=== PATIENT | male | born 2000 | race Caucasian/White ===

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

== ENCOUNTER 2023-04-27 20:01 | Emergency (ER) | payer OTHER, SELFPAY ==
[2023-04-27 20:15] VITALS: BP 137/72; BP 146/84; PULSE 112; PULSE 140; RESP 16; TEMP 37.2; O2SAT 96; O2SAT 97; BMI 25.8
--- NOTE | 2023-04-27 20:21 | PC.NURSE ---
patient denies SI/HI, states he has just been upset the past few days
[2023-04-27 20:34] VITALS: BP 137/76; PULSE 123; RESP 14; TEMP 36.8; O2SAT 95
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
== END 2023-04-27 20:47 | disposition home or self-care (01) ==
PROVIDERS: Emergency Provider Internal Medicine
DX: R45.1 Restlessness and agitation (principal); F12.90 Cannabis use, unspecified, uncomplicated
CPT/HCPCS: 99282; 99283

== ENCOUNTER → 2023-06-28 12:30 | Outpatient (BNV) | payer OTHER, SELFPAY | PROVIDERS: Visit Provider Psychiatry & Neurology Psychiatry | DX: F11.20 Opioid dependence, uncomplicated (principal); F13.120 Sedative, hypnotic or anxiolytic abuse with intoxication, uncomplicated; F19.10 Other psychoactive substance abuse, uncomplicated; F41.3 Other mixed anxiety disorders; F19.94 Other psychoactive substance use, unspecified with psychoactive substance-induced mood disorder; F17.200 Nicotine dependence, unspecified, uncomplicated | CPT/HCPCS: 90792 ==

== ENCOUNTER 2023-07-02 11:45 | Outpatient (RCR) | payer OTHER, SELFPAY ==
--- NOTE | 2023-06-27 09:29 | PC.NURSE ---
Eris did not show up to the program this morning. I called Eris's phone and his mother answered. She told me he is at home and asked me to call her back in 20 minutes.
--- NOTE | 2023-06-27 09:56 | PC.NURSE ---
I spoke to Eris who stated he let staff know yesterday that he has a appointment at 11:am today for a therapist in [place] and he was not able to rescheduled this appointment to attend the program. He plans on coming tomorrow.
[2023-06-28 11:38] VITALS: BMI 32.0
[2023-06-28 15:18] LABS: Amphetamine Screen Urine Not Detected (Not Detect); Barbiturates, Urine Not Detected (Not Detect); Benzodiazepines Screen Urine Not Detected (Not Detect); Cannabinoid Screen Urine POSITIVE (Not Detect); Cocaine Screen Urine Not Detected (Not Detect); Fentanyl, urine Not Detected (Not Detect); Opiate Screen Urine Not Detected (Not Detect); Phencyclidine Screen Urine Not Detected (Not Detect)
--- NOTE | 2023-06-28 23:55 | HO.PS.ADMBH ---
HPI Date of Service: 06/28/23 Chief Complaint: anxiety,DINAH Sources of Information: patient interviewed, chart reviewed and crisis/core team assessment reviewed HPI Narrative: Patient prefers going by Isaiah . This is the first [facility] admission for this?22 year old male with a history of polysubstance dependence on opioid agonist therapy who recently completed 60-day court-mandated substance abuse treatment for alcohol dependence. Just prior to this he had completed 30 days of treatment at the same facility, only to relapse immediately after being discharged.? Today he reports he is doing well, ?I?m not going back this time?. He says he is committed to his sobriety and is feeling more steady and more confident this time around. ?I needed the extra time?. He reports his mood is ?good, now stable? and says he is not having any mood swings anymore. He reports that he does not struggle with mood issues when he is clean. He indicates that relapses are triggered by situations, namely arguments with family or loved ones. He reports some anxiety, somatic more so than cognitive, but again says anxiety is only problematic in the context of substance and alcohol use. He otherwise denies any history suggestive of depressive episodes or suicidal or self harming behaviors, and reports he has ?never? had any suicidal ideation. He denies any anxiety spectrum disorders or trauma history. He denies any history of hypomania, ortiz or psychosis.? He was started on Vivitrol just over a week ago to help deal with cravings and says in the meantime he has been dealing with cravings by keeping himself distracted with activities (working, going to the gym, visiting family, hanging out with his younger sister, going shopping, going for drives) and generally staying focused on his recovery.? He recently started to transition away from a problematic long-term relationship with his GF of 6 yrs, which he has been dealing with but says this is a ?good change? and that he was the one who initiated the break-up, and says that this was a healthy choice, ?I?m doing it for me?. He will be moving back home to live with his mother and reports that he and his mother have a strong relationship.? Past Psychiatric History: No hx of IP hospitalizations or PHP admissions Section 35s (x 2) for opioid and benzodiazepine addiction, mandated treatment to [facility] in [place] 02/2023 (for 30 days) and 04/2023 (for 60 days) Denies any history of suicide attempts, gestures or self harming behaviors Hx of ADHD diagnosed in childhood, was treated from ages [age] but felt ?zombified? and his mother allowed him to stop taking his medication. He recognizes he still deals with symptoms of ADHD on a daily basis but does not feel it is overly impairing and does not feel he needs treatment.? Current treaters: Therapist through [facility] PCP - Annia Vigil - patient says he has not been seen in a few years Previous trials: Concerta in childhood naltrexone po (since 1 month ago); and transitioned onto IM naltrexone (first dose 06/19/23) CURRENT MEDICATIONS: Vivitrol 380 mg IM monthly (through [facility]) [facility] Medical History (Updated 07/01/23 @ 04:11 by Evi Garrido MD) No known health problems Narrative: Healthy Denies any chronic conditions or hx of serious illnesses Denies any surgeries Denies any seizures Denies any concussions or TBI Ht: 5?6? Wt: 198 lbs ALL: NKDA Narrative: Denies Family History: Father w active addiction No other known FH, denies known hx of suicides Social History: Living at home with his mother and 18 year old sister? Recent break-up of 6 year relationship Employed at [employer] 32 hrs/week? Dropped out of in 10th grade In process of working toward his GED through [facility] Grew up in the area, family moved many times between [place], [place], [place], [place] when he was growing up Current legal issues - drug possession charges which he reportedly is in the process of getting expunged from his records. Denies any other legal history. Substance History: Opioid use: since summer 2022, started abusing percocets (his drug of choice ), regularly to daily, last use 04/2023 BZD use: since Fall 2022, occasionally, last use 04/2023 Alcohol use: since age 18, occasional, last use Cocaine use: since 2022, has ever used on 2 occasions, last use 04/2023 Cannabis use: since age 18, occasional, not daily, currently avoiding, last use 05/06/2023 Caffeine use: minimal 0-1 unit/day Nicotine use: currently vaping, about 1 year Trauma History: Denies hx of physical, sexual or emotional abuse. Per assessment watched his father use drugs Diagnostics Vital Signs (24Hr): BMI result Body Mass Index 32.0 Labs Labs: Laboratory Results - last 48 hr 06/28/23 11:30 Urine Opiates Screen Not Detected Urine Fentanyl Screen Not Detected Ur Barbiturates Screen Not Detected Ur Phencyclidine Scrn Not Detected Ur Amphetamines Screen Not Detected U Benzodiazepines Scrn Not Detected Urine Cocaine Screen Not Detected U Marijuana (THC) Screen POSITIVE H Meds/Allergies Meds Home Medications Medication Instructions Recorded Confirmed Type naltrexone microspheres 380 mg 380 mg IM QMONTH 06/28/23 06/28/23 History intramuscular suspension,extended release (Vivitrol) Allergies Allergies Allergy/AdvReac Type Severity Reaction Status Date / Time No Known Allergies Allergy Verified 06/28/23 11:35 [No Known Allergies*] Mental Status Exam Mental Status Exam Narrative: Alert, oriented, in no acute distress. Calm, cooperative, engaged. No psychomotor agitation or neurovegetative retardation. Eye contact maintained. Mood okay , anxious, affect contstricted. Speech normal. Thought process linear, coherent. Thought content related to stressors, cravings, denies helplessness, hopelessness, or SI. Denies aggressive ideation or HI. No paranoia or delusional content elicited. No evidence of psychosis. Insight and judgment impaired. Assessment & Plan Assessment & Plan (1) Opioid use disorder, severe, on maintenance therapy: Status: Acute Code(s): F11.20 - Opioid dependence, uncomplicated Assessment and Plan: 2 months since last use (will be in early remission by July) (2) Sedative, hypnotic or anxiolytic abuse with intoxication, uncomplicated: Status: Acute Code(s): F13.120 - Sedative, hypnotic or anxiolytic abuse with intoxication, uncomplicated (3) Polysubstance abuse: Status: Acute Code(s): F19.10 - Other psychoactive substance abuse, uncomplicated Assessment and Plan: alcohol, cannabis, cocaine (minimal), nicotine dependence (4) Other mixed anxiety disorders: Status: Acute Code(s): F41.3 - Other mixed anxiety disorders (5) Substance induced mood disorder: Status: Acute Code(s): F19.94 - Other psychoactive substance use, unspecified with psychoactive substance-induced mood disorder Assessment and Plan: in remission (6) Nicotine dependence with current use: Status: Acute Code(s): F17.200 - Nicotine dependence, unspecified, uncomplicated Assessment and Plan: nicotine vaping daily since >1 year Plan Admit to [facility] patient being maintained on Vivitrol 380 mg monthly injectable no medications started at this time per patient preference [facility] reviewed - no findings lab slip given, pending urine tox screen continue to monitor as per protocol Patient educated on: diagnosis, medication risk/benefits and substance abuse Informed Consent: understands Reason for continued partial hosp. stay Substantial Risk for: rapid decompensation and med/psych decompensation Certification I certify that partial hospital treatment is medically necessary due to the symptoms and problems resulting from the patient's mental illness and the failure to treat the patient at the partial hospital level of care would likely result in the patient requiring inpatient psychiatric care which could not be prevented at a less intensive level of care. Time Spent With Patient Time: Total time managing care of this patient today __60__ minutes.
--- NOTE | 2023-07-01 09:30 | HO.PHP ---
[facility] staff member followed up with Eris due to him not showing to program. Eris informed [facility] staff member that he is not feeling well and will be going to the doctors later today to receive a note to bring to program tomorrow. [facility] staff member was receptive and assessed level of risk. Eris reported no concerns around SI, plan or intent and stated he is safe. Eris will be at program tomorrow.
--- NOTE | 2023-07-03 09:30 | HO.PHP ---
[facility] staff Admin, received a Voice message from Eris stating that he attended program 15 minutes late this morning, in which an individual informed him he was unable to partake for the day. [facility] staff member, Cristela, followed up with Eris in regards to his Voice message. Eris said that someone told him that he was unable to stay for the day because he missed the community meeting and noted that he recalls staff members stating what the guidelines were so he had gone home. [facility] staff member explored if he knew who he had spoken to. Eris disclosed that it was a lady with blonde hair and a blue shirt. [facility] staff was uncertain to who Eris was referring to and noted that there are other people who work in the hospital that walk in the hallways. Eris felt strongly around it was a staff member in the program and asked if he could come now. [facility] staff disclosed it is currently 9:40 AM and he wouldn't be able to participate since he missed a majority of the first group. [facility] staff explored if Eris is safe. Eris reported no SI,plan or intent and stated he will be in the program tomorrow. [facility] staff was receptive and reminded him of the protocols around attendance. Eris was receptive.
--- NOTE | 2023-07-04 09:30 | HO.PHP ---
[facility] staff member reached out to Eris due to him not arriving to program today. [facility] staff member left a voice message and encouraged Eris to return the programs call. [facility] staff member stated if we do not hear back from him in a 15 minute time period, we will have to move forward with completing a wellness check. [facility] staff member is awaiting a call back.
--- NOTE | 2023-07-04 09:45 | HO.PHP ---
[facility] staff member reached out to Eris one more time prior to initiating a wellness check with the local police. Eris's mother had answered the phone, in which she noted that Eris is safe and he was not in attendance to program today due to not feeling well. Eris's mother voiced that they aren't sure if he has COVID and stated that her mother is bringing another test over to see if the other ones were incorrect that he had taken. Eris's mother expressed that when Eris is out of the shower, she will have him contact the program back. [facility] staff member was receptive.
--- NOTE | 2023-07-04 10:30 | HO.PHP ---
At 10:15 AM, Eris arrived at program asking to join groups for the day. [facility] staff member relayed to Eris the [facility] protocols that were discussed the day prior with him. Eris stated that he wanted to show that he is taking this program seriously. [facility] staff member explored with Eris what he is hoping to gain from this program. Eris expressed that this program is a good reminder of why he is working towards sobriety. [facility] staff member was receptive and informed him that she will have to explore this with the team to see if we could medically clear him for discharge due to him missing more days then he has attended. PHP staff stated that she will get back to him later in the day. Eris was receptive. [facility] staff member assessed safety prior to him leaving. Eris disclosed no safety concerns.
--- NOTE | 2023-07-04 15:30 | HO.PHP ---
[facility] staff member contacted Eris back and voiced that due to missing more days then he has attended, we will be discharging him from the program. [facility] staff member encouraged Eris when he is ready to complete the program in its entirety to contact the program back. [facility] staff member also provided Eris with resources to continue at a substance IOP program ([facility]). Eris was receptive.
== END 2023-07-02 23:59 | disposition home or self-care (01) ==
LOC: HO.PHPA 11:45
PROVIDERS: Visit Provider Psychiatry & Neurology Psychiatry
DX: F11.20 Opioid dependence, uncomplicated (principal); F13.120 Sedative, hypnotic or anxiolytic abuse with intoxication, uncomplicated; F19.94 Other psychoactive substance use, unspecified with psychoactive substance-induced mood disorder; F41.3 Other mixed anxiety disorders; F17.200 Nicotine dependence, unspecified, uncomplicated
CPT/HCPCS: 80307; 90791; 90853

== ENCOUNTER 2024-06-29 19:23 | Emergency (ER) | payer OTHER, SELFPAY ==
--- NOTE | 2024-06-29 | ECG_ITS ---
Test Reason : REPEAT Blood Pressure : */* mmHG Vent. Rate : 82 BPM Atrial Rate : 82 BPM P-R Int : 142 ms QRS Dur : 90 ms QT Int : 390 ms P-R-T Axes : 41 16 6 degrees QTcB Int : 455 ms Normal sinus rhythm Minimal voltage criteria for LVH, may be normal variant ( R in aVL ) Borderline ECG When compared with ECG of 29-Jun-2024 19:39, No significant change was found Referred By: Generic ED Physician Electronically Signed By: Mikal Rudolph
--- NOTE | 2024-06-29 | ECG_ITS ---
Test Reason : OD Blood Pressure : */* mmHG Vent. Rate : 83 BPM Atrial Rate : 83 BPM P-R Int : 136 ms QRS Dur : 94 ms QT Int : 378 ms P-R-T Axes : 41 20 14 degrees QTcB Int : 444 ms Normal sinus rhythm with sinus arrhythmia Minimal voltage criteria for LVH, may be normal variant ( R in aVL ) Borderline ECG No previous ECGs available Referred By: Generic ED Physician Electronically Signed By: Mikal Rudolph
[2024-06-29 19:31] VITALS: BP 124/62; BP 139/93; PULSE 87; PULSE 89; RESP 15; TEMP 37; O2SAT 96; O2SAT 99; BMI 36.3
[2024-06-29 19:33] VITALS: BP 124/62; PULSE 91; RESP 18; TEMP 37; O2SAT 95
--- NOTE | 2024-06-29 19:56 | PC.NURSE ---
Ekg completed, posion controlled called and orders placed, repeat EKG in 2 hours.
--- NOTE | 2024-06-29 20:11 | ED.GENADULT ---
HPI - General Adult General Chief complaint: General Medical Stated complaint: PC, intentional OD, 13 tabs xanax Time Seen by Provider: 06/29/24 19:40 History of Present Illness HPI narrative: Patient is a 23-year-old male presents today after ingesting approximately 11 tablets of Xanax prior to being in police custody. Patient was running from police at that time. He claims he took an additional 2 tablets while in custody. Patient denies any suicidal intent. He wanted to get high. Also might have taken up to 4 tablets of Percocet which he sniffed. Patient came to the ED at approximately 20:00. He has no complaints. Denies any suicidal homicidal ideation. Admits to drinking some alcohol as well. Related Data Home Medications ?Medication ?Instructions ?Recorded ?Confirmed naltrexone microspheres 380 mg 380 mg IM QMONTH 06/28/23 06/28/23 intramuscular suspension,extended release (Vivitrol) Allergies Allergy/AdvReac Type Severity Reaction Status Date / Time No Known Allergies Allergy Verified 06/29/24 19:34 [No Known Allergies*] Review of Systems Review of Systems: Positive recreational drug use Yes all other systems are reviewed and are negative [facility] Past Medical History Attestation statement: The following information was validated with the patient. Medical History No known health problems Social History Social History Household Members: Family Alcohol intake: current Alcohol intake frequency: does not drink Smoked in Last 30 Days: Yes Use of substances other than those prescribed or required for medical reasons: Yes Substance Use Type: Sedatives Advance Directives: No Advance Directives Information Provided: No Do you have a plan to hurt others: No Plan Physical Exam ED Vital Signs: Vital Signs - 24 hr 06/29/24 19:31 06/29/24 19:33 06/29/24 20:27 Temperature 98.6 F 98.6 F 98.3 F Pulse Rate 89 91 86 Respiratory Rate 15 18 20 Blood Pressure 124/62 124/62 116/56 L Pulse Oximetry 99 95 96 Oxygen Delivery Method Room Air Room Air Room Air BMI result Body Mass Index 36.3 Appearance: Alert. Oriented X3. No acute distress. Eyes: Pupils equal, round and reactive to light. ENT: Pharynx normal. Neck: Normal inspection. Neck supple. No lymph nodes noted. No crepitus CVS: Normal heart rate and rhythm. Pulses normal. Normal S1 and S2 Respiratory: No respiratory distress. Breath sounds normal. No Wheezing. No rales Abdomen: Soft and nontender. No rigidity. No distention. good BS x4 Skin: Skin warm and dry. Normal skin color. Normal skin turgor. Extremities: No lower extremity edema. Neurovascular intact to all extremities. No Lacerations. No Rash Neuro: Oriented X 3. No motor deficit. No sensory deficit. Moving all extermities. No slurred speech Medical Decision Making Medical Decision Making [facility] Narrative: Patient well-appearing no acute distress my interpretation of patient's EKG showed a sinus rhythm heart rate is 80 NH QRS QTC within normal limits there is no acute ST segment elevation noted. Patient in no acute distress is awake alert. His ingestion took place at approximately 15:00. It is now 20:00. Will get baseline labs. Patient is clinically arousable talking no distress. Has no suicidal homicidal ideation. Took it to get high and to run from PD. Currently in stable condition. Patient monitored in the emergency department for 3 hours. Symptoms improving. Heart rate is coming down. We repeated the EKG it showed a sinus rhythm heart rate is 80 NH QRS QTC normal there is no acute ST segment elevation patient is awake alert oriented. Tylenol aspirin level is actually negative. It has been over 7 hours since the patient took the ingestion will discharge patient back to PD custody. In stable condition. Differential Diagnosis Differential Diagnoses: The differential diagnosis associated with the presentation includes Substance abuse, overdose Admission/Observation Consideration of admission/observation: Escalation of care including admission/observation considered Consult Healthcare Provider Management of the patient was discussed with: Rigging Helper (Poison control) Lab Data [facility] Lab Attestation statement: I reviewed the patient's lab results. 06/29/24 20:22 06/29/24 20:22 Labs: Lab Results 06/29/24 Range/Units 20:22 WBC 9.5 (4.8-10.8) X10*3/uL RBC 4.61 (4.60-5.80) X10*6/uL Hgb 12.6 L (14.0-18.0) g/dl Hct 36.6 L (42.0-52.0) % MCV 79.4 L (80.0-98.0) fL MCH 27.3 (27.0-33.0) pg MCHC 34.4 (31.0-36.0) g/dl RDW 13.2 (11.0-16.0) % Plt Count 214 (160-400) X10*3/uL MPV 9.7 (9.4-12.4) fL Immature Gran % (Auto) 0.6 H (0.0-0.4) % Neut % (Auto) 64.1 (45-73) % Lymph % (Auto) 26.2 (20-40) % [place] % (Auto) 7.9 (2-11) % Eos % (Auto) 1.0 (0-4) % Baso % (Auto) 0.2 (0-2) % Lymph # (Auto) 2.5 (1.2-4.9) X10*3/uL [place] # (Auto) 0.8 (0.1-1.2) X10*3/uL Eos # (Auto) 0.1 (0.0-0.4) X10*3/uL Baso # (Auto) 0.0 (0.0-0.2) X10*3/uL Abs Immat Gran (auto) 0.06 H (0.00-0.03) X10*3/uL Absolute Neuts (auto) 6.1 (2.0-8.3) x10*3/uL Absolute Nucleated RBC 0.000 (0.0-0.012) X10*3/uL Nucleated RBC % (auto) 0.0 (0.0-0.2) /100WBC Sodium 138 (135-145) mmol/L Potassium 3.8 (3.3-5.1) mmol/L Chloride 106 (96-108) mmol/L Carbon Dioxide 23 (22-29) mmol/L Anion Gap 13 (12-20) BUN 11 (9-16) mg/dL Creatinine 0.66 (0.5-1.4) mg/dL Estim Creat Clear Calc 198.0 Estimated GFR > 60 Random Glucose 91 (60-115) mg/dL Calcium 9.5 (8.4-10.2) mg/dL Total Bilirubin 0.2 (0.0-1.0) mg/dL AST 30 (5-37) U/L ALT 45 H (0-40) U/L Alkaline Phosphatase 113 (39-117) U/L Total Protein 8.1 H (6.5-8.0) g/dL Albumin 4.2 (3.5-5.0) g/dL Salicylates < 5.0 L (15-30) mg/dL Acetaminophen < 3 (<30) mcg/mL Ethyl Alcohol < 10 mg/dL Independent Interpretation I performed an independent interpretation of an: EKG (Sinus heart rate is 80 NH QRS QTC normal no acute ST segment elevation noted.) External Record Review External record reviewed: Outpatient record Prescription Management No need for additional medication at this point Chronic Conditions Polysubstance abuse Social Determinants Patient?s care significantly limited by Social Determinants of Health including: Alcoholism and drug addiction in family, Problems related to primary support group and Unemployment Critical Care Time Critical Care Time Critical Care Time: Yes Total Critical Care Time: 35 Attestation: I have personally provided 35 minutes of critical care time exclusive of time spent on separately billable procedures. ?Time includes review of lab data, radiology results, discussion with consultants, and monitoring for potential decompensation. ?Interventions were performed as documented above Discharge Plan Discharge Clinical Impression: Polysubstance abuse Patient Disposition: Home, Self-Care Instructions: Polysubstance Abuse (ED) Prescriptions: No Action Vivitrol 380 mg Suspension,Extended Rel Recon 380 mg IM QMONTH Patient Comments: Patient stated he received right before he left [facility] on 06/19/23. Referrals: Jose Saul MD [Primary Care Provider] - 2 days Print Language: Estonian
[2024-06-29 20:27] VITALS: BP 116/56; PULSE 86; RESP 20; TEMP 36.8; O2SAT 96
[2024-06-29 20:35] LABS: MANUAL DIFF FLAG NO
[2024-06-29 20:37] LABS: Basophils Percent Auto 0.2 % (0-2); Eosinophils Absolute Auto 0.1 X10*3/uL (0.0-0.4); Hematocrit 36.6 % (42.0-52.0); Hemoglobin 12.6 g/dl (14.0-18.0); Imm Gran Abs Auto 0.06 X10*3/uL (0.00-0.03); Imm Gran Pct Auto 0.6 % (0.0-0.4); Lymphocytes Absolute Auto 2.5 X10*3/uL (1.2-4.9); Lymphocytes Percent Auto 26.2 % (20-40); Mean Corpuscular HGB Conc 34.4 g/dl (31.0-36.0); Mean Corpuscular Hemoglobin 27.3 pg (27.0-33.0); Mean Corpuscular Volume 79.4 fL (80.0-98.0); Mean Platelet Volume 9.7 fL (9.4-12.4); Monocytes Absolute Auto 0.8 X10*3/uL (0.1-1.2); Monocytes Percent Auto 7.9 % (2-11); Neutrophils Absolute Auto 6.1 x10*3/uL (2.0-8.3); Neutrophils Percent Auto 64.1 % (45-73); Platelet Count 214 X10*3/uL (160-400); Red Blood Count 4.61 X10*6/uL (4.60-5.80); Red Cell Distribution Width 13.2 % (11.0-16.0); White Blood Count 9.5 X10*3/uL (4.8-10.8)
[2024-06-29 20:52] LABS: Acetaminophen LAB < 3 mcg/mL (<30); Alanine Aminotransferase 45 U/L (0-40); Albumin Level 4.2 g/dL (3.5-5.0); Alkaline Phosphatase 113 U/L (39-117); Anion Gap 13 (12-20); Aspartate Amino Transferase 30 U/L (5-37); Bilirubin Total 0.2 mg/dL (0.0-1.0); Blood Urea Nitrogen 11 mg/dL (9-16); Calcium 9.5 mg/dL (8.4-10.2); Carbon Dioxide 23 mmol/L (22-29); Chloride 106 mmol/L (96-108); Estimated Glomerular Filt Rate > 60; Ethanol < 10 mg/dL; Glucose Random 91 mg/dL (60-115); Potassium 3.8 mmol/L (3.3-5.1); Salicylate < 5.0 mg/dL (15-30); Sodium 138 mmol/L (135-145); Total Protein 8.1 g/dL (6.5-8.0)
[2024-06-29 22:06] VITALS: BP 124/69; PULSE 90; RESP 20; TEMP 36.8; O2SAT 96
--- NOTE | 2024-06-29 22:06 | PC.NURSE ---
Pt in police custody, position control cleared, reviewed dishcarge instructions with pt. pt verbalized understanding, no sign of chest pain or sob. Pt is in police custody.
[2024-06-29 22:17] VITALS: BP 124/69; PULSE 90; RESP 20; TEMP 36.8; O2SAT 96
== END 2024-06-29 22:17 | disposition home or self-care (01) ==
PROVIDERS: Emergency Provider Emergency Medicine Emergency Medical Services; PCP Internal Medicine
DX: F13.10 Sedative, hypnotic or anxiolytic abuse, uncomplicated (principal); I49.8 Other specified cardiac arrhythmias; Z79.899 Other long term (current) drug therapy; Z71.51 Drug abuse counseling and surveillance of drug abuser; Z30.09 Encounter for other general counseling and advice on contraception
CPT/HCPCS: 36415; 80053; 80143; 80179; 80307; 85025; 93005; 99283; 99284

== ENCOUNTER → 2024-06-29 19:39 | Outpatient (BNV) | payer OTHER, SELFPAY | PROVIDERS: Emergency Provider Emergency Medicine Emergency Medical Services; PCP Internal Medicine; Visit Provider Internal Medicine Cardiovascular Disease | DX: T50.901A Poisoning by unspecified drugs, medicaments and biological substances, accidental (unintentional), initial encounter (principal); I49.9 Cardiac arrhythmia, unspecified | CPT/HCPCS: 93010 ==